=== PATIENT | male | born 2000 | race Hispanic/Latino ===

== ENCOUNTER 2024-08-01 00:28 | Emergency (ER) | payer SELFPAY | END 2024-08-01 03:45 | LOC: ERS 00:28 | DX: F10.129 Alcohol abuse with intoxication, unspecified (principal); R51.9 Headache, unspecified; V89.2XXA Person injured in unspecified motor-vehicle accident, traffic, initial encounter; W22.11XA Striking against or struck by driver side automobile airbag, initial encounter; Y93.89 Activity, other specified | CPT/HCPCS: 36416; 70450; 72125 ==